=== PATIENT | female | born 1965 | race African-American/Black ===

== ENCOUNTER 2019-09-01 01:48 | Emergency (ER) | payer SELFPAY ==
[~2019-09-01] VITALS: Ht 160 cm; Wt 77.1 kg
[2019-09-01 02:01] VITALS: BP 122/85
--- NOTE | 2019-09-01 02:01 | NUR ---
ED Nurse Note: Patient walked in from home d/t flu-like symptoms, body aches. Denies n/v/d. Patient aao x 3 and ambulatory. Patient stable during assessment.
--- NOTE | 2019-09-01 02:05 | NUR ---
ED Nurse Note: ERMD with patient.
--- NOTE | 2019-09-01 02:11 | Emergency Room Report ---
History of Present Illness General Chief Complaint: Upper Respiratory Illness Source: Patient Present Illness [facility] Disclaimer: Please note that this report is being documented using [employer] technology. This can lead to erroneous entry secondary to incorrect interpretation by the dictating instrument. HPI: 54-year-old female presents for evaluation of cough, myalgias and fatigue. Patient states of the past 24 hours she has had a nonproductive cough, felt achy, fatigued but denied any nasal congestion, headache, fever, postnasal drip , sore throat, chest pain, nausea, vomiting, diarrhea, rash. She reports chills. She was at a [employer] earlier today and reports drinking small amount of alcohol. She is requesting that we test her urine for possible toxins as she is worried that someone might of slipped something in her drink. She denies any paranoid thoughts otherwise but wants to make sure that no one slipped or anything at this [employer] as she did not know the people very well. Denies SI/HI. Does not take any medications. Has no history of COPD, asthma or bronchitis. PMH: Denies PSH: Denies Allergies: Penicillin Social Hx: Social alcohol use Allergies: Coded Allergies: PENICILLINS (Verified Allergy, Unknown, 09/01/19) Nursing Documentation-PMH Past Medical History: No Stated History Review of Systems All Other Systems: negative except mentioned in HPI Physical Exam Vital Signs Date Time Temp Pulse Resp B/P (MAP) Pulse Ox O2 Delivery O2 Flow Rate FiO2 09/01/19 01:59 97.5 75 14 118/78 (91) 99 Room Air General: Awake and alert, no acute distress HEENT: NC/AT. EOMI. Uvula midline. Edentulous. Moist mucous membranes, no pharyngeal edema, erythema or exudate Neck: Supple, trachea midline. Mild anterior lymphadenopathy Chest Wall: No tenderness, no deformity Cardiovascular: RRR. S1 and S2 normal. No murmur appreciated Resp: Normal work of breathing. Lungs are clear. No cough, no wheezes, no crackles appreciated. Abdomen: Abdomen is soft, nondistended. Nontender Skin: Intact. No abrasions, laceration or rash over the exposed skin MSK: Normal tone and bulk. Moving all extremities. No obvious deformity. Neuro: Awake and alert. Mentating appropriately. Medical Decision Making Diagnostic Impression: Primary Impression: Respiratory infection Additional Impression: Eloped from emergency department ER Course Is a 54-year-old female presenting for evaluation of 1 day cough, chills, fatigue and requesting a urine tox screen to make sure no one slipped her any illicit drugs at a [employer]. Overall, she is well-appearing stable vital signs, alert, oriented cooperative with exam and no acute distress. Her lungs are clear and I do not believe she requires emergent imaging or labs at this time to evaluate for what is likely a respiratory illness. I will send a urine tox screen given her anxiety over the issue though I did have little concern that she was poisoned at this time. Reevaluation Time: 03:35 Last Vital Signs Date Time Temp Pulse Resp B/P (MAP) Pulse Ox O2 Delivery O2 Flow Rate FiO2 09/01/19 01:59 97.5 75 14 118/78 (91) 99 Room Air Reevaluation Impression Urinalysis and tox unremarkable. The patient absconded prior to receiving her results. Disposition: ELOPED Condition: Stable Scripts No Active Prescriptions or Reported Meds Modesto Kemp MD Sep 01, 2019 02:10
[2019-09-01 02:26] LABS: APPEARANCE,URINE CLEAR; BILIRUBIN, URINE NEGATIVE (NEGATIVE); COLOR,URINE PALE YELLOW; GLUCOSE, URINE (UA) NEGATIVE (NEGATIVE); KETONES,URINE 2+ (NEGATIVE); LEUKOCYTE ESTERASE ,URINE NEGATIVE (NEGATIVE); NITRITE,URINE NEGATIVE (NEGATIVE); PH,URINE 6.5 (4.5-8.0); PROTEIN,URINE NEGATIVE (NEGATIVE); UROBILINOGEN,URINE NORMAL MG/DL (0.0-1.0)
[2019-09-01 02:45] VITALS: BP 120/78
--- NOTE | 2019-09-01 02:45 | NUR ---
ER DISCHARGE NOTE: Patient is cleared to be discharged per ERMD, pt is aox4, on room air, with stable vital signs. pt was given dc instructions, pt verbalized understanding. pt is able to ambulate with steady gait. pt took all belongings. pt stable upon discharge. Addendum: 09/01/19 at 0318 by IOROPEL ER DISCHARGE NOTE: Patient is cleared to be discharged per ERMD, pt is aox4, on room air, with stable vital signs. pt was given dc instructions, pt verbalized understanding, refused to sign discharge paperwork. pt is able to ambulate with steady gait. pt took all belongings. pt stable upon discharge.
== END 2019-09-01 02:45 | disposition home or self-care (01) ==
LOC: EMR 02:26
DX: J98.8 Other specified respiratory disorders (principal); Z88.0 Allergy status to penicillin
CPT/HCPCS: 80307; 81003; 99283